=== PATIENT | female | born 1945 | race Caucasian/White ===

== ENCOUNTER 2016-11-17 09:31 | Emergency (ER) | payer MEDICARE ==
[2016-11-17 10:05] VITALS: BP 133/75
--- NOTE | 2016-11-17 14:10 | UC ---
Hand/Wrist HPI - HPI Summary HPI Summary: BILATERAL HANDS WEAKNESS, NUMBNESS AND TINGLING X 2 MONTHS, NO KNOWN INJURY , NO NECK PAIN , HAS BEEN HAVING RIGHT LEG WEAKNESS WELL , DIFFICULTLY WALING AND KEEPING HER BALANCE NO FEVER, NO CHILLS, NO HEADACHE , NO NECK PAIN OR LOWER BACK PAIN - History Of Current Complaint Chief Complaint: UCGeneralIllness Stated Complaint: HAND NUMBNESS,LEG WEAKNESS Time Seen by Provider: 11/17/16 10:12 Hx Obtained From: Patient Onset/Duration: Gradual Onset, Lasting Weeks - 8, Still Present Severity Initially: Moderate Severity Currently: Moderate Pain Intensity: 0 Pain Scale Used: 0-10 Numeric Character Of Pain: Stiffness Aggravating Factor(s): Movement Alleviating: Nothing Associated Signs And Symptoms: Positive: Weakness, Numbness/Tingling. Negative : Swelling, Redness, Bruising, Fever - Allergies/Home Medications Allergies/Adverse Reactions: Allergies Allergy/AdvReac Type Severity Reaction Status Date / Time Penicillins Allergy Unknown Verified 11/17/16 09:57 Reaction Details Home Medications: Home Medications Cholecalciferol [Vitamin D3] 5,000 unit PO DAILY 11/17/16 [History Confirmed ] Conjugated Estrogens TAB* [Premarin TAB*] 0.3 mg PO DAILY 11/17/16 [History Confirmed 11/17/16] Lisinopril [Prinivil TAB 20 mg] 20 mg PO DAILY 11/17/16 [History Confirmed 11/17] PMH/Surg Hx/FS Hx/Imm Hx Previously Healthy: Yes - Surgical History Surgical History: Yes Surgery Procedure, Year, and Place: R shoulder. hysterectomy - Family History Known Family History: Negative: Diabetes - Social History Alcohol Use: Weekly Alcohol Amount: q other day Substance Use Type: None Smoking Status (MU): Former Smoker When Did the Patient Quit Smoking/Using Tobacco: 34 years ago Review of Systems Constitutional: Negative Skin: Negative Eyes: Negative ENT: Negative Respiratory: Negative Cardiovascular: Negative Neurological: Weakness, Paresthesia All Other Systems Reviewed And Are Negative: Yes Physical Exam Triage Information Reviewed: Yes Appearance: Well-Appearing, No Pain Distress, Well-Nourished Vital Signs: Initial Vital Signs Temp 98.3 F 11/17/16 09:59 Pulse 75 11/17/16 09:59 Resp 18 11/17/16 09:59 BP 133/75 11/17/16 09:59 Pulse Ox 100 11/17/16 09:59 Eye Exam: Normal Eyes: Positive: Conjunctiva Clear ENT: Positive: Normal ENT inspection, Hearing grossly normal, Pharynx normal Neck: Positive: Supple, Nontender, No Lymphadenopathy Respiratory: Positive: Chest non-tender, Lungs clear, Normal breath sounds Cardiovascular: Positive: RRR, No Murmur, Pulses Normal Musculoskeletal Exam: Other - RIGHT LEG: + LIMPING, NO SWELLING OF THE HIP NOR THE KNEE, NO TENDERNESS, NORMAL STRENGTH Musculoskeletal: Positive: Other: - BILATERAL HANDS: NO SWELLIN, NO ERYTHE, + DIFFICULTY MAKING A FIST, + WEAKNESS WITH SPREDING THE FINGERS/ LUMBRICALS WEAKNESS Hand/Wrist Course/Dx - Differential Dx/Diagnosis Provider Diagnoses: HAND WEAKNESS. RIGHT LEG WEAKNESS Discharge - Discharge Plan Condition: Stable Disposition: HOME Patient Education Materials: Cervical Radiculopathy (ED) Referrals: Radha ACOSTA,Rea [Primary Care Provider] - Bailey El MD [Medical Doctor] - As Soon As Possible Additional Instructions: bilateral hand weakness and numbness right leg / knee weakness concern about pinched nerve, referral to neurologist for eval and tx , may need nerve conduction study
== END 2016-11-17 11:08 | disposition home or self-care (01) ==
LOC: UCCORT 09:31
DX: M62.81 Muscle weakness (generalized) (principal)
CPT/HCPCS: 36415; 85652; 86038; 86618; 99211; G0463

== ENCOUNTER 2018-02-10 10:10 | Day surgery (SDC) | payer MEDICARE ==
[~2018-02-10 10:10] MED LIST: Buffered Lidocaine 0.9% SYRIN* 5 ML/SYR SYRINGE INTRADERM ONE; Famotidine IV* 10 MG/ML 2 ML (20 mg) IV ONE
[2018-02-10] MEDS ORDERED: Famotidine IV* 10 MG/ML 2 ML (20 mg) ONE (10:31)
[2018-02-10] MEDS ORDERED: Midazolam* 1 MG/ML 2 ML VIAL (2 MG) ONE (12:26)
[2018-02-10] MEDS ORDERED: fentaNYL* 50 MCG/ML 2 ML VIAL (100 MCG VIAL) ONE (12:26)
[2018-02-10] MEDS ORDERED: ROPIVACAINE 5 MG/ML 30 ML BTL (0.5%) ONE (13:01)
[2018-02-10] MEDS ORDERED: Acetaminophen TAB* 325 MG PO PRN (13:29)
[2018-02-10] MEDS ORDERED: oxyCODONE/Acetamin 5/325 MG* TAB PO PRN (13:29)
[2018-02-10] MEDS ORDERED: Naloxone* 0.4 MG/ML 1 ML VIAL IV PRN (13:29)
[2018-02-10] MEDS ORDERED: Ondansetron INJ* 2 MG/ML VIAL IV PRN (13:29)
[2018-02-10] MEDS ORDERED: fentaNYL* 50 MCG/ML 2 ML VIAL (100 MCG VIAL) IV PRN (13:29)
[2018-02-10 14:12] VITALS: BP 137/66
--- NOTE | 2018-02-11 01:26 | OP ---
DATE OF OPERATION: 02/10/18 [facility] DATE OF : 41 SURGEON: Norberto Parikh MD SEAFOOD HARVESTER: LUDIVINA Posey. ANESTHESIOLOGIST: Dr. Moscoso. ANESTHESIA: Local MAC. PRE-OP DIAGNOSIS: Right index finger mucous cyst. POST-OP DIAGNOSIS: Right index finger mucous cyst. OPERATIVE PROCEDURE: Excision of right index finger mucous cyst. INDICATIONS: Lisbet has the aforementioned mucous cyst. It is on the dorsum of the right index finger just proximal to the DIP joint. The skin is very thin over the cyst. We had talked about risks and benefits including the need to potentially do a rotational flap to close the wound. She understood all of this. She wished to proceed with surgery. ESTIMATED BLOOD LOSS: 1 mL. COMPLICATIONS: None. FINDINGS: See above and below. DESCRIPTION OF PROCEDURE: Lisbet was seen in the preoperative holding area. The correct side, site, and procedure were identified. We come back to the operating room. The arm was prepped and draped in the usual fashion. A time- out was performed. I exsanguinated the finger with the Tourni-Cot and left the Tourni-Cot on proximally throughout the procedure. I then made a T-shaped incision along the mid axial line that was T'd back transversely over the DIP joint. Full thickness skin flaps were raised, the mucous cyst from the underlying tendon and soft tissue. The margins of the cyst were developed with the [place] blade. Great care was taken not to perforate the skin flap. The cyst was raised up and tracked back to the ulnar side of the DIP joint. It was emanating in the interval between the extensor tendon and the collateral ligament. The cyst was amputated at the joint. The joint capsule was cauterized with the Bovie cautery. Once everything was looking good, we irrigated out the wound. The skin was closed with 4-0 nylon suture. The Tourni -Cot was let off. The wound was dressed and she was taken to the recovery room in stable condition. [id number]/[facility] #: [id number] [facility]
== END 2018-02-10 14:09 | disposition home or self-care (01) ==
LOC: OREAST 10:10
PROVIDERS: ATTEND Orthopaedic Surgery Hand Surgery
DX: M67.441 Ganglion, right hand (principal); I10 Essential (primary) hypertension; Z87.891 Personal history of nicotine dependence; M19.90 Unspecified osteoarthritis, unspecified site
CPT/HCPCS: 88304; J2250; J2795; J3010